=== PATIENT | female | born 1975 | race Two or more races ===

== ENCOUNTER 2017-07-06 22:48 | Emergency (ER) | payer MEDICAID ==
[~2017-07-06] VITALS: Ht 154.9 cm; Wt 63.5 kg
[2017-07-06] MEDS ORDERED: IBUPROFEN600 MG ORAL (22:58)
[2017-07-06 23:00] VITALS: BP 133/91
[2017-07-06] MEDS ORDERED: Morphine Sulfate 4mg/ml Inj IM ONE (23:15)
[2017-07-06] MEDS ORDERED: HYDROCODON-ACE1 EA15 ORAL (23:17)
--- NOTE | 2017-07-06 23:19 | Emergency Room Report ---
History of Present Illness General Chief Complaint: Upper Extremity Injury Source: Patient Present Illness HPI Is a 41-year-old female who is right-hand dominant. She works as a motion picture actor. She presents with chief complaint of left wrist pain. His been on off for the last 3 weeks. Worse in the last few days. Both wrists are affected but left much greater than right. She went to [id number] emergency room a few days ago. Placed on Motrin and wrist splint. Not getting better. Pain is 9/10. Worse with movement. Denies any trauma. No nausea no vomiting. No fever or chills. Allergies: Coded Allergies: No Known Allergies (Unverified , 07/06/17) Patient History Past Medical History: see triage record, old chart reviewed Past Surgical History: none Pertinent Family History: none Social History: Denies: smoking Last Menstrual Period: Last month Now: No Immunizations: other Reviewed Nursing Documentation: PMH: Agreed, PSxH: Agreed Nursing Documentation-PMH Past Medical History: No Stated History Review of Systems Eye: Denies: eye pain, blurred vision ENT: Denies: ear pain, nose congestion, throat swelling Respiratory: Denies: cough, shortness of breath Cardiovascular: Denies: chest pain, palpitations Gastrointestinal: Denies: abdominal pain, diarrhea, nausea, vomiting Musculoskeletal: Reports: joint pain, joint swelling, Denies: back pain Skin: Denies: rash Neurological: Denies: headache, numbness Endocrine: Denies: increased thirst, increased urine Hematologic/Lymphatic: Denies: easy bruising All Other Systems: negative except mentioned in HPI Physical Exam Vital Signs Date Time Temp Pulse Resp B/P (MAP) Pulse Ox O2 Delivery O2 Flow Rate FiO2 07/06/17 22:52 98.1 83 16 133/91 98 Room Air vitals normal Sp02 EP Interpretation: reviewed, normal General Appearance: well appearing, no apparent distress, alert Head: normocephalic, atraumatic Eyes: bilateral eye PERRL, bilateral eye EOMI ENT: hearing grossly normal, normal pharynx Neck: full range of motion, supple, no meningismus Respiratory: chest non-tender, lungs clear, normal breath sounds Cardiovascular #1: regular rate, rhythm, no murmur Gastrointestinal: normal bowel sounds, non tender, no mass, no organomegaly, no bruit, non-distended Musculoskeletal: back normal, gait/station normal, normal range of motion, other - Left wrist: Tenderness over the median nerve. Mild edema to the wrist. Full range of motion. No redness. No trauma. Sensation normal. Psychiatric: mood/affect normal Skin: warm/dry Medical Decision Making Diagnostic Impression: Primary Impression: Carpal tunnel syndrome Qualified Codes: G56.02 - Carpal tunnel syndrome, left upper limb ER Course Patient with symptoms consistent with carpal tunnel syndrome. No evidence of trauma. No evidence of septic joint. We'll discharge home. Last Vital Signs Date Time Temp Pulse Resp B/P (MAP) Pulse Ox O2 Delivery O2 Flow Rate FiO2 07/06/17 22:52 98.1 83 16 133/91 98 Room Air Status: improved Disposition: HOME, SELF-CARE Condition: Stable Scripts Hydrocodone/Acetaminophen 5-325* (HYDROCODONE/ACETAMINOPHEN 5-325*) 1 Each Tablet 1 TAB ORAL Q6H Y for For Pain, #30 TAB 0 Refills Prov: EZRA EDEN M.D. 07/06/17 Additional Instructions: Followup with your DrStephania in 7 days. Return if symptom worsen. EZRA EDEN M.D. Jul 06, 2017 23:19
[2017-07-06 23:35] VITALS: BP 133/91
== END 2017-07-06 23:35 | disposition home or self-care (01) ==
LOC: EMR 23:00
DX: G56.02 Carpal tunnel syndrome, left upper limb (principal)
CPT/HCPCS: 96372; 99283; J2270